=== PATIENT | male | born 1935 | race Caucasian/White ===

== ENCOUNTER 2018-08-29 01:36 | Inpatient (IN) | payer MEDICARE, BC ==
[~2018-08-29] VITALS: Ht 172.7 cm; Wt 81.6 kg
[2018-08-29] VITALS (12 sets, daily range): BP systolic 81–102; BP diastolic 42–63
[2018-08-29] MEDS ORDERED: ONDANSETRON 4 MG/2 ML VIAL IV ONE (01:45)
[2018-08-29] MEDS ORDERED: IV NORMAL SALINE 500 ML BAG IV ONE (01:45)
--- NOTE | 2018-08-29 01:50 | NUR ---
Dr. Grewal at bedside for MSE.
[2018-08-29] MEDS ORDERED: ONDANSETRON 4 MG/2 ML VIAL ONE (01:58)
[2018-08-29 01:59] LABS: BASOPHILS % (AUTO) 0.2 % (0.0-2.0); EOSINOPHILS % (AUTO) 0.7 % (0.0-7.0); HEMATOCRIT 22.5 % (36.7-47.1); HEMOGLOBIN 7.6 g/dL (12.5-16.3); LYMPHOCYTES # (AUTO) 0.6 K/uL (20.0-40.0); LYMPHOCYTES % (AUTO) 12.1 % (20.5-51.5); MEAN CORPUSCULAR HEMOGLOBIN 34.8 uug (23.8-33.4); MEAN CORPUSCULAR HGB CONC 34 g/dL (32.5-36.3); MEAN CORPUSCULAR VOLUME 102.3 fL (73.0-96.2); MONOCYTES # (AUTO) 0.4 K/uL (2.0-10.0); MONOCYTES % (AUTO) 9.4 % (0.0-11.0); NEUTROPHILS # (AUTO) 3.7 K/uL (1.8-8.9); NEUTROPHILS % (AUTO) 77.6 % (38.5-71.5); PLATELET COUNT (AUTO) 125 K/uL (152-348); WHITE BLOOD COUNT (AUTO) 4.8 K/uL (3.6-10.2)
[2018-08-29] MEDS ORDERED: CARVEDILOL 6.25 MG (01:59)
[2018-08-29] MEDS ORDERED: RANO10004 PO (01:59)
[2018-08-29] MEDS ORDERED: MULT1TAB73 PO (01:59)
[2018-08-29] MEDS ORDERED: CALC1CAP21 PO (01:59)
[2018-08-29] MEDS ORDERED: NIAC500C3 PO (01:59)
[2018-08-29] MEDS ORDERED: ATORVASTATIN 40 MG (01:59)
[2018-08-29] MEDS ORDERED: LOSARTAN 25 MG (01:59)
[2018-08-29] MEDS ORDERED: CLOPIDOGREL 75 MG (01:59)
[2018-08-29] MEDS ORDERED: CYAN1TAB43 PO (01:59)
[2018-08-29] MEDS ORDERED: ASPI-1094 PO (01:59)
[2018-08-29] MEDS ORDERED: VITA400C24 PO (01:59)
[2018-08-29] MEDS ORDERED: UBID100C13 PO (01:59)
[2018-08-29 02:05] LABS: CARBON DIOXIDE 23 mmol/L (21-32); CHLORIDE 107 mmol/L (98-107); CREATININE 1.2 mg/dL (0.6-1.3); GLUCOSE 118 mg/dL (74-106); POTASSIUM 4.2 mmol/L (3.5-5.1); UREA NITROGEN, BLOOD 34 mg/dL (7-18)
[2018-08-29 02:10] LABS: ALANINE AMINOTRANSFERASE 18 U/L (16-63); ALKALINE PHOSPHATASE 58 U/L (50-136); ASPARTATE AMINOTRANSFERASE 17 U/L (15-37); BILIRUBIN,DIRECT 0.2 mg/dL (0.0-0.2); BILIRUBIN,TOTAL 0.5 mg/dL (0.2-1.0); LIPASE 106 U/L (73-393); TOTAL PROTEIN, SERUM 4.9 g/dL (6.4-8.2)
[2018-08-29] MEDS ORDERED: DIPHENOXYLATE HCL/ATROP SULF TABLET PO ONE (02:15)
--- NOTE | 2018-08-29 02:15 | NUR ---
Xray at bedside.
[2018-08-29] MEDS ORDERED: DIPHENOXYLATE HCL/ATROP SULF TABLET ONE (02:20)
--- NOTE | 2018-08-29 02:20 | NUR ---
Dr. Grewal on panel call with Cristin Faye NP. Pt accepted for admission to [facility], diagnosis: gi bleeding and syncope.
[2018-08-29] MEDS ORDERED: PANTOPRAZOLE SODIUM 40 MG VIAL ONE (02:24)
[2018-08-29] MEDS ORDERED: PANTOPRAZOLE SODIUM IV 80 MG in IV DEXTROSE 5% 100 ML IV ONE (02:30)
--- NOTE | 2018-08-29 02:56 | NUR ---
Report given to Alli ROSENBERG Tele.
[2018-08-29] MEDS ORDERED: HYDROCODONE/APAP 5-325MG TABLET PO PRN (05:15)
[2018-08-29] MEDS ORDERED: ONDANSETRON 4 MG/2 ML VIAL IV PRN (05:15)
[2018-08-29] MEDS ORDERED: ZOLPIDEM 5 MG TABLET PO PRN (05:15)
[2018-08-29] MEDS ORDERED: MAGNESIUM HYDROXIDE 30 ML LIQUID UDC PO PRN (05:15)
[2018-08-29] MEDS ORDERED: ACETAMINOPHEN 325 MG TABLET PO PRN (05:15)
[2018-08-29] MEDS ORDERED: Z GUARD REMEDY PASTE 57 GM TUBE TOP PRN (05:15)
[2018-08-29] MEDS: IV NS 1000 ML 1,000 ML IV PRN ×2 (06:21→23:35)
--- NOTE | 2018-08-29 06:44 | NUR ---
Admitted to room 316, accompanied by family; no acute distress; one unit of PRBC transfused without complication; one unit Platelets ordered by ER MD; remains pending from Blood bank; needs attended; on clear liquids.
[2018-08-29 08:28] LABS: BASOPHILS % (AUTO) 0.4 % (0.0-2.0); EOSINOPHILS # (AUTO) 0.1 K/uL (0.0-0.7); EOSINOPHILS % (AUTO) 1.1 % (0.0-7.0); HEMATOCRIT 24.3 % (36.7-47.1); HEMOGLOBIN 8.2 g/dL (12.5-16.3); LYMPHOCYTES # (AUTO) 0.9 K/uL (20.0-40.0); MEAN CORPUSCULAR HEMOGLOBIN 34.2 uug (23.8-33.4); MEAN CORPUSCULAR HGB CONC 34 g/dL (32.5-36.3); MONOCYTES # (AUTO) 0.7 K/uL (2.0-10.0); MONOCYTES % (AUTO) 11.8 % (0.0-11.0); NEUTROPHILS # (AUTO) 4.1 K/uL (1.8-8.9); NEUTROPHILS % (AUTO) 70.7 % (38.5-71.5); PLATELET COUNT (AUTO) 116 K/uL (152-348); WHITE BLOOD COUNT (AUTO) 5.8 K/uL (3.6-10.2)
[2018-08-29 08:39] LABS: CARBON DIOXIDE 24 mmol/L (21-32); CHLORIDE 108 mmol/L (98-107); CHOLESTEROL 71 mg/dL (<200); CREATININE 0.9 mg/dL (0.6-1.3); GLUCOSE 102 mg/dL (74-106); HDL CHOLESTEROL 36 mg/dL (40-60); MAGNESIUM 1.9 mg/dL (1.8-2.4); PHOSPHOROUS 2.6 mg/dL (2.5-4.9); POTASSIUM 4.2 mmol/L (3.5-5.1); TRIGLYCERIDES 35 MG/DL (30-150); UREA NITROGEN, BLOOD 29 mg/dL (7-18)
[2018-08-29] MEDS ORDERED: CLOPIDOGREL 75 MG TABLET PO SCH (12:30)
[2018-08-29] MEDS ORDERED: ATOR40TA PO (12:38)
[2018-08-29] MEDS: ASPIRIN 81 MG TAB.CHEW PO SCH (12:53)
[2018-08-29 17:08] LABS: IRON, SERUM 46 ug/dL (50-175)
[2018-08-29 17:23] LABS: FERRITIN 173 ng/mL (26-388)
--- NOTE | 2018-08-29 19:20 | NUR ---
Received patient awake and alert laying comfortably in bed. VS WNL and patient is stable. IV site is patent and intact. All safety and fall precaution measures in place. Bed in low position and locked. 2 side rails are up and locked. Call light within reach at all times. Will continue to monitor.
[2018-08-29] MEDS: SUCRALFATE 1 G/10 ML LIQUID UDC GT SCH (20:46)
[2018-08-29] MEDS: PANTOPRAZOLE SODIUM 40 MG VIAL IV SCH (20:47)
[2018-08-29] MEDS ORDERED: ATORVASTATIN 40 MG TABLET PO SCH (21:00)
[2018-08-30 00:23] VITALS: BP 95/56
[2018-08-30 01:26] LABS: *OCCULT BLOOD STOOL POSITIVE (NEGATIVE)
--- NOTE | 2018-08-30 01:58 | NUR ---
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 D/C'd IV site due to infiltration, applied new jesse and inserted new IV on left forearm with 22g. New site patent and intact. Patient tolerated IV insertion well and is resting comfortably in bed.
--- NOTE | 2018-08-30 05:14 | NUR ---
Patient slept comfortably throughout night with no complaints of pain or acute distress. All prescribed medications provided as ordered and tolerated well. All needs assessed and addressed promptly. Safety and fall precautions implemented and maintained throughout night. VS are WNL and patient is stable. IV site patent and intact. Bed in low position and locked. 2 side rails up and locked. Call light and personal belongings within reach at all times.
[2018-08-30 05:26] VITALS: BP 92/55
[2018-08-30] MEDS: SUCRALFATE 1 G/10 ML LIQUID UDC GT SCH (06:43)
--- NOTE | 2018-08-30 07:10 | NUR ---
PATIENT RECEIVED IN THE BED, RESTING COMFORTABLY, NO ACUTE EVENTS DURING NIGHT, NO S/S DISTRESS, ALL SAFETY AND COMFORT MEASURES ARE IMPLEMENTED, CALL LIGHT IN REACH, BED IN LOW POSITION
[2018-08-30] MEDS: ASPIRIN 81 MG TAB.CHEW PO SCH (08:37)
[2018-08-30] MEDS: PANTOPRAZOLE SODIUM 40 MG VIAL IV SCH (08:37)
[2018-08-30 08:40] LABS: BASOPHILS % (AUTO) 0.1 % (0.0-2.0); EOSINOPHILS % (AUTO) 0.6 % (0.0-7.0); HEMATOCRIT 24.9 % (36.7-47.1); HEMOGLOBIN 8.6 g/dL (12.5-16.3); LYMPHOCYTES # (AUTO) 0.7 K/uL (20.0-40.0); LYMPHOCYTES % (AUTO) 11.4 % (20.5-51.5); MEAN CORPUSCULAR HEMOGLOBIN 34.9 uug (23.8-33.4); MEAN CORPUSCULAR HGB CONC 35 g/dL (32.5-36.3); MEAN CORPUSCULAR VOLUME 100.7 fL (73.0-96.2); MONOCYTES # (AUTO) 0.7 K/uL (2.0-10.0); MONOCYTES % (AUTO) 11.5 % (0.0-11.0); NEUTROPHILS # (AUTO) 4.5 K/uL (1.8-8.9); NEUTROPHILS % (AUTO) 76.4 % (38.5-71.5); PLATELET COUNT (AUTO) 159 K/uL (152-348); WHITE BLOOD COUNT (AUTO) 5.9 K/uL (3.6-10.2)
[2018-08-30 08:42] LABS: RED BLOOD CELL COUNT(AUTO) 2.47 MIL/uL (4.06-5.63)
[2018-08-30 08:54] LABS: CARBON DIOXIDE 22 mmol/L (21-32); CHLORIDE 107 mmol/L (98-107); GLUCOSE 114 mg/dL (74-106); MAGNESIUM 1.9 mg/dL (1.8-2.4); PHOSPHOROUS 3.4 mg/dL (2.5-4.9); POTASSIUM 3.9 mmol/L (3.5-5.1); UREA NITROGEN, BLOOD 27 mg/dL (7-18)
[2018-08-30] MEDS ORDERED: PANTOPRAZOLE SODIUM 40 MG VIAL IV SCH (09:00)
[2018-08-30] MEDS ORDERED: CLOPIDOGREL 75 MG TABLET PO SCH (10:30)
[2018-08-30] MEDS ORDERED: ATORVASTATIN 40 MG TABLET PO SCH (10:30)
[2018-08-30 11:09] VITALS: BP 94/55
--- NOTE | 2018-08-30 12:24 | NUR ---
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
== END 2018-08-30 12:12 | disposition home or self-care (01) | DRG 377 ==
LOC: ER 01:39 → TELE3 03:13
PROVIDERS: ADMIT Nurse Practitioner Acute Care; ATTEND Internal Medicine
PROC: 30233N1 Transfusion of Nonautologous Red Blood Cells into Peripheral Vein, Percutaneous Approach (ICD-10-PCS; principal; 2018-08-29)
DX: K92.2 Gastrointestinal hemorrhage, unspecified (principal); N17.0 Acute kidney failure with tubular necrosis; D62 Acute posthemorrhagic anemia; E44.0 Moderate protein-calorie malnutrition; I95.1 Orthostatic hypotension; I25.10 Atherosclerotic heart disease of native coronary artery without angina pectoris; Z95.1 Presence of aortocoronary bypass graft; Z95.5 Presence of coronary angioplasty implant and graft; Z79.82 Long term (current) use of aspirin; Z79.899 Other long term (current) drug therapy; E78.5 Hyperlipidemia, unspecified; Z88.0 Allergy status to penicillin; R15.9 Full incontinence of feces; I70.0 Atherosclerosis of aorta; K52.9 Noninfective gastroenteritis and colitis, unspecified; Z68.27 Body mass index [BMI] 27.0-27.9, adult; D51.9 Vitamin B12 deficiency anemia, unspecified; E86.0 Dehydration
CPT/HCPCS: 36415; 71045; 82378; 83550; 83690; 83735; 84100; 85025; 85730; 86850; 86900; 86901; 86920; 87046; 89055; 93005; 93307; A4663; C9113; G0378; J2405; J7030; J7040; J7050; J7060; P9016-BL; P9021; P9035-BL